=== PATIENT | female | born 1965 | race Two or more races ===

== ENCOUNTER 2017-08-27 14:34 | Outpatient (CLI) | payer OTHER | END 2017-08-27 14:49 | disposition home or self-care (01) | LOC: SONOGRAMA 14:34 | DX: N92.5 Other specified irregular menstruation (principal) ==

== ENCOUNTER 2017-09-08 06:37 | Day surgery (SDC) | payer OTHER ==
[~2017-09-08 06:37] MED LIST: AMBIEN5 MG PO
== END 2017-09-08 17:16 | disposition home or self-care (01) ==
LOC: CIR.AMB 06:37
DX: N84.0 Polyp of corpus uteri (principal); D26.1 Other benign neoplasm of corpus uteri

== ENCOUNTER 2017-12-24 14:42 | Outpatient (CLI) | payer OTHER | END 2017-12-24 14:56 | disposition home or self-care (01) | LOC: MAMO-SONO 14:42 | DX: Z12.31 Encounter for screening mammogram for malignant neoplasm of breast (principal); N60.11 Diffuse cystic mastopathy of right breast; N60.12 Diffuse cystic mastopathy of left breast ==

== ENCOUNTER → 2018-12-23 16:33 | Outpatient (CLI) | payer OTHER | END | disposition home or self-care (01) | LOC: RAD 16:33 | DX: M54.5 Low back pain (principal) ==

== ENCOUNTER 2020-01-28 16:31 | Outpatient (CLI) | payer OTHER | END 2020-01-28 16:40 | disposition home or self-care (01) | LOC: RAD 16:31 | PROVIDERS: ATTEND General Practice | DX: M62.830 Muscle spasm of back (principal); M60.10 Interstitial myositis of unspecified site; M54.13 Radiculopathy, cervicothoracic region ==

== ENCOUNTER → 2021-03-01 09:01 | Outpatient (CLI) | payer OTHER | END | disposition home or self-care (01) | LOC: LAB 09:01 | PROVIDERS: ATTEND General Practice | DX: I10 Essential (primary) hypertension (principal); E88.89 Other specified metabolic disorders; G45.8 Other transient cerebral ischemic attacks and related syndromes ==

== ENCOUNTER 2021-03-02 08:01 | Outpatient (CLI) | payer OTHER | END 2021-03-02 08:04 | disposition home or self-care (01) | LOC: TOM 08:01 | PROVIDERS: ATTEND General Practice | DX: G45.8 Other transient cerebral ischemic attacks and related syndromes (principal) ==

== ENCOUNTER → 2021-03-28 06:56 | Outpatient (CLI) | payer OTHER | END | disposition home or self-care (01) | LOC: LAB 06:56 | PROVIDERS: ATTEND Internal Medicine Cardiovascular Disease | DX: I10 Essential (primary) hypertension (principal); I67.1 Cerebral aneurysm, nonruptured; Z13.850 Encounter for screening for traumatic brain injury ==

== ENCOUNTER → 2021-03-28 07:59 | Outpatient (CLI) | payer OTHER | END | disposition home or self-care (01) | LOC: MRI 07:59 | PROVIDERS: ATTEND Internal Medicine Cardiovascular Disease | DX: I67.1 Cerebral aneurysm, nonruptured (principal); Z13.850 Encounter for screening for traumatic brain injury | CPT/HCPCS: 70552 ==

== ENCOUNTER 2022-01-04 09:23 | Outpatient (CLI) | payer OTHER | END 2022-01-04 09:39 | disposition home or self-care (01) | LOC: SONOGRAMA 09:23 | PROVIDERS: ATTEND General Practice | DX: N64.9 Disorder of breast, unspecified (principal) ==

== ENCOUNTER 2022-03-21 11:02 | Outpatient (CLI) | payer OTHER | END 2022-03-21 11:09 | disposition home or self-care (01) | LOC: LAB 11:02 → EKG 11:02 → LAB 11:09 | PROVIDERS: ATTEND Ophthalmology | DX: I10 Essential (primary) hypertension (principal); I11.9 Hypertensive heart disease without heart failure ==

== ENCOUNTER 2022-03-21 11:53 | Outpatient (CLI) | payer OTHER | END 2022-03-21 11:54 | disposition home or self-care (01) | LOC: RAD 11:53 | PROVIDERS: ATTEND Ophthalmology | DX: Z98.41 Cataract extraction status, right eye (principal); H25.011 Cortical age-related cataract, right eye ==

== ENCOUNTER 2022-03-22 09:21 | Outpatient (CLI) | payer OTHER | END 2022-03-22 09:33 | disposition home or self-care (01) | LOC: LAB 09:21 | PROVIDERS: ATTEND Ophthalmology | DX: D68.8 Other specified coagulation defects (principal); H25.011 Cortical age-related cataract, right eye ==

== ENCOUNTER 2022-04-08 09:21 | Outpatient (CLI) | payer OTHER | END 2022-04-08 09:23 | disposition home or self-care (01) | LOC: SONOGRAMA 09:21 | PROVIDERS: ATTEND General Practice | DX: N85.00 Endometrial hyperplasia, unspecified (principal) ==

== ENCOUNTER 2022-12-17 07:55 | Emergency (ER) | payer OTHER ==
[~2022-12-17] VITALS: Ht 248.9 cm; Wt 62.6 kg
[2022-12-17] MEDS ORDERED: PROZAC10 M1 PO (08:29)
[2022-12-17] MEDS ORDERED: DICLOFENAC POTA50 MG PO (09:01)
[2022-12-17] MEDS ORDERED: CYCLOBENZAPRINE10 MG PO (09:01)
== END 2022-12-17 09:11 | disposition home or self-care (01) ==
LOC: ER 07:55
DX: M54.42 Lumbago with sciatica, left side (principal)

== ENCOUNTER 2023-01-10 09:09 | Emergency (ER) | payer OTHER ==
[~2023-01-10] VITALS: Ht 157.5 cm; Wt 62.1 kg
[~2023-01-10 09:09] MED LIST changes: +CYCLOBENZAPRINE10 MG PO; +DICLOFENAC POTA50 MG PO; +PROZAC10 M1 PO
[2023-01-10] MEDS ORDERED: AMLODIPINE-OLM1 EAC2 PO (09:28)
[2023-01-10] MEDS ORDERED: AMBIEN5 MG PO (09:28)
== END 2023-01-10 12:47 | disposition home or self-care (01) ==
LOC: ER 09:09
DX: G44.89 Other headache syndrome (principal); I10 Essential (primary) hypertension

== ENCOUNTER 2024-04-02 09:25 | Emergency (ER) | payer OTHER ==
[~2024-04-02] VITALS: Ht 157.5 cm; Wt 60.8 kg
[~2024-04-02 09:25] MED LIST changes: +AMLODIPINE-OLM1 EAC2 PO
[2024-04-02] MEDS ORDERED: AMBIEN10 MG (09:52)
[2024-04-02] MEDS ORDERED: AMLODIPINE BESYL5 MG (09:53)
[2024-04-02] MEDS ORDERED: ENOXAPARIN SODIUM 60 MG/0.6 ML SYRINGE SUBCUTANEO STA (12:13)
[2024-04-02] MEDS ORDERED: CLOPIDOGREL BISULFATE 75 MG TABLET PO STA (12:16)
[2024-04-02] MEDS ORDERED: DEXAMETHASONE SODIUM PHOSPHATE 4 MG/ML VIAL IV STA (12:17)
[2024-04-02] MEDS ORDERED: CLOPIDOGREL BISULFATE 75 MG TABLET PO ONE (12:40)
[2024-04-02] MEDS ORDERED: ENOXAPARIN SODIUM 60 MG/0.6 ML SYRINGE SUBCUTANEO ONE (12:40)
[2024-04-02] MEDS ORDERED: DEXAMETHASONE SODIUM PHOSPHATE 4 MG/ML VIAL ONE (12:41)
[2024-04-02 12:52] LABS: HEMATOCRIT 36.8 % (36.0-45.00); HEMOGLOBIN 12.7 g/dL (12.0-15.00); MEAN CELL VOLUME 88.4 fL (80.00-100.00); MEAN CORPUSCULAR HEMOGLOBIN 30.6 pg (27.00-32.0); MEAN CORPUSCULAR HGB CONC 34.6 g/dl (32.0-36.0); PLATELET COUNT 290 K/uL (150-450); RED BLOOD COUNT 4.17 M/uL (4.00-6.00); RED CELL DISTRIBUTION WIDTH 13.7 % (11.5-14.5)
[2024-04-02 13:05] LABS: PH,URINE 5.5 (5.0-8.0); URINE APPEARANCE Clear; URINE BILIRRUBIN Negative (NEGATIVE); URINE BLOOD Negative; URINE COLOR Yellow; URINE GLUCOSE Negative (NEGATIVE); URINE KETONE Negative (NEGATIVE); URINE LEUKOCYTE Negative; URINE NITRATE Negative; URINE PROTEIN Negative (NEGATIVE); URINE UROBILINOGEN 0.2 E.U./dl
[2024-04-02 13:08] LABS: URINE BACTERIA 60.4 uL (0.0-1933); URINE EPITHELIAL CELLS 3.5 uL (0.0-38.8); URINE WBC 4.6 uL (0.0-23.2)
[2024-04-02 13:09] LABS: ALBUMIN 3.6 gm/dL (3.4-5.0); ALKALINE PHOSPHATASE 95 U/L (50-136); ALT/SGPT 21 U/L (12-78); ANION GAP 11 (10.0-20.0); AST/SGOT 18 U/L (15-37); BILIRUBIN TOTAL 0.24 mg/dL (0.3-1.2); BILIRUBIN,CONJUGATED < 0.10 mg/dL (0.0-0.2); BILIRUBIN,UNCONJUGATED 0.14 mg/dL (0.0-0.6); BLOOD UREA NITROGEN 11 mg/dL (7-18); BUN CREA RATIO 13 (7.0-25.0); CALCIUM 9.2 mg/dL (8.5-10.1); CARBON DIOXIDE 30 mEq/L (21-32); CHLORIDE 109 mmol/L (98-107); CREATININE SERUM 0.82 mg/dL (0.55-1.02); GFR 72.11; GLUCOSE FASTING 99 mg/dL (65-100); OSMOLALITY SERUM 290 MOSM/KG (275-295); SODIUM 146 mmol/L (136-145); TOTAL PROTEIN 7.5 gm/dL (6.4-8.2)
[2024-04-02 13:14] LABS: URINE CAST 0.15 uL (0.0-1.40); URINE RBC 1.9 uL (0.0-20.8)
== END 2024-04-02 14:13 | disposition home or self-care (01) ==
LOC: ER 09:26
PROVIDERS: General Practice
DX: R55 Syncope and collapse (principal); Z86.711 Personal history of pulmonary embolism; I10 Essential (primary) hypertension

== ENCOUNTER 2024-04-21 09:39 | Outpatient (CLI) | payer OTHER ==
[~2024-04-21 09:39] MED LIST changes: +AMBIEN10 MG; +AMLODIPINE BESYL5 MG
== END 2024-04-21 09:55 | disposition home or self-care (01) ==
LOC: MRI 09:39
PROVIDERS: ATTEND Internal Medicine Cardiovascular Disease
DX: Z86.73 Personal history of transient ischemic attack (TIA), and cerebral infarction without residual deficits (principal)
CPT/HCPCS: 70551

== ENCOUNTER 2024-04-26 09:18 | Outpatient (CLI) | payer OTHER | END 2024-04-26 09:19 | disposition home or self-care (01) | LOC: NUCLEAR 09:18 | PROVIDERS: ATTEND Internal Medicine Cardiovascular Disease | DX: Z86.73 Personal history of transient ischemic attack (TIA), and cerebral infarction without residual deficits (principal) ==

== ENCOUNTER 2025-02-21 10:47 | Emergency (ER) | payer OTHER ==
[~2025-02-21] VITALS: Ht 157.5 cm; Wt 61.2 kg
[2025-02-21] MEDS ORDERED: PLAVIX75 MG (11:16)
[2025-02-21] MEDS ORDERED: METHYLPREDNISOLONE SOD SUCC 125 MG VIAL IV ONE (11:45)
[2025-02-21 14:09] LABS: COVID-19 AG NEGATIVE (NEGATIVE)
== END 2025-02-21 15:36 | disposition home or self-care (01) ==
LOC: ER 11:02
PROVIDERS: General Practice
DX: B34.9 Viral infection, unspecified (principal); Z20.822 Contact with and (suspected) exposure to COVID-19

== ENCOUNTER 2025-06-09 09:33 | Outpatient (CLI) | payer OTHER ==
[~2025-06-09 09:33] MED LIST changes: +PLAVIX75 MG
== END 2025-06-09 09:45 | disposition home or self-care (01) ==
LOC: MAMO-SONO 09:33
PROVIDERS: ATTEND Internal Medicine Hematology & Oncology
DX: N64.4 Mastodynia (principal); N63 Unspecified lump in breast; D68.61 Antiphospholipid syndrome; E72.11 Homocystinuria; E72.12 Methylenetetrahydrofolate reductase deficiency; D51.1 Vitamin B12 deficiency anemia due to selective vitamin B12 malabsorption with proteinuria; I26.99 Other pulmonary embolism without acute cor pulmonale; Z86.73 Personal history of transient ischemic attack (TIA), and cerebral infarction without residual deficits; I10 Essential (primary) hypertension

== ENCOUNTER 2025-06-20 07:24 | Outpatient (CLI) | payer OTHER | END 2025-06-20 07:39 | disposition home or self-care (01) | LOC: MRI 07:24 | PROVIDERS: ATTEND Internal Medicine Hematology & Oncology | DX: D68.61 Antiphospholipid syndrome (principal); E72.11 Homocystinuria; E72.12 Methylenetetrahydrofolate reductase deficiency; D51.1 Vitamin B12 deficiency anemia due to selective vitamin B12 malabsorption with proteinuria; I26.99 Other pulmonary embolism without acute cor pulmonale; Z86.73 Personal history of transient ischemic attack (TIA), and cerebral infarction without residual deficits; I10 Essential (primary) hypertension | CPT/HCPCS: 70543; 70553 ==